=== PATIENT | male | born 1970 | race African-American/Black ===

== ENCOUNTER 2018-09-02 06:43 | Day surgery (SDC) | payer MEDICAID ==
[~2018-09-02] VITALS: Ht 170.2 cm; Wt 88.5 kg
[~2018-09-02 06:43] MED LIST: ALBU18HF2 IH; AMLO10TA80 PO; BECL10.6 IH; CYCL10TA7 PO; LACTATED RINGERS 1,000 ML IV SCH; OMEP20TA2 PO; OXYC-579 PO
[2018-09-02 07:50] LABS: BASOPHILS % 0.9 % (0.0-2.0); EOSINOPHILS % 4.3 % (0.0-5.0); HEMATOCRIT. 41.5 % (42.0-52.0); HEMOGLOBIN. 13.2 g/dL (14.0-18.0); LYMPHOCYTES % 39.2 % (20.0-50.0); MEAN CORPUSCULAR HEMOGLOBIN 24.6 pg (28.0-32.0); MEAN CORPUSCULAR VOLUME 77.2 fL (80.0-94.0); MEAN PLATELET VOLUME 8.8 fl (7.4-10.4); NEUTROPHILS % 45.6 % (40.0-76.0); PLATELET 166 x1000/uL (130-400); RED BLOOD CELL COUNT 5.37 mill/uL (4.7-6.1); RED CELL DISTRIBUTION WIDTH 14.2 % (11.6-14.6)
[2018-09-02 07:58] LABS: CHLORIDE 111 mEq/L (98-107); PARTIAL THROMBOPLASTIN TIME 26.4 sec (23.4-31.0)
[2018-09-02 09:03] LABS: CLARITY URINE CLEAR (CLEAR); COLOR URINE YELLOW (YELLOW); KETONES URINE NEGATIVE (NEGATIVE); LEUKOCYTE ESTERASE URINE NEGATIVE (NEGATIVE); NITRITE URINE NEGATIVE (NEGATIVE); OCCULT BLOOD URINE NEGATIVE (NEGATIVE); PH URINE 5.5 (4.5-8.0); PROTEIN URINE NEGATIVE (NEGATIVE); SPECIFIC GRAVITY URINE 1.022 (1.005-1.030); UROBILINOGEN URINE 0.2 E.U./dL (0.2-1.0)
[2018-09-02] MEDS ORDERED: EPINEPHRINE 1:1000 1 MG/ML AMP ONE (10:01)
[2018-09-02] MEDS ORDERED: BUPIVACAINE HCL/EPINEPHRINE 0.5%/0.0005 30ML ONE ×2 (10:02→14:44)
[2018-09-02] MEDS ORDERED: BUPIVACAINE/EPINEPH/PF 0.25%/0.0005 10ML ONE ×2 (10:28→13:59)
[2018-09-02] MEDS ORDERED: CLINDAMYCIN 900 MG in DEXTROSE 5% WATER 50 ML IV ONE (10:45)
[2018-09-02] MEDS ORDERED: FENTANYL CITRATE/PF 50MCG/ML 2ML VIAL ONE ×2 (11:40→13:13)
[2018-09-02] MEDS ORDERED: MIDAZOLAM HCL 2 MG/2 ML VIAL ONE ×2 (11:40→13:13)
[2018-09-02] MEDS ORDERED: ROPIVACAINE HCL 10MG/ML 20 ML VIAL EPI ONE (11:40)
[2018-09-02] MEDS ORDERED: NEOSTIGMINE METHYLSULFATE 1MG/ML 10 ML VIAL ONE (13:13)
[2018-09-02] MEDS ORDERED: PROPOFOL 200MG/20ML VIAL IV ONE (13:13)
[2018-09-02] MEDS ORDERED: GLYCOPYRROLATE 0.2 MG/ML 2ML VIAL ONE (13:13)
[2018-09-02] MEDS ORDERED: EPHEDRINE SULFATE 50MG/ML VIAL ONE (13:13)
[2018-09-02] MEDS ORDERED: ROCURONIUM BROMIDE 10MG/ML VIAL 5ML IV ONE (13:13)
[2018-09-02] MEDS ORDERED: SODIUM CHLORIDE 0.9% 10ML VIAL ONE (13:13)
[2018-09-02] MEDS ORDERED: SUCCINYLCHOLINE CHLORIDE 200MG/10ML IV ONE (13:13)
[2018-09-02] MEDS ORDERED: LIDOCAINE HCL/PF 1% 10 MG/ML 5ML VIAL ONE (13:13)
[2018-09-02] MEDS ORDERED: CEFAZOLIN SODIUM 1000MG/VIAL ONE (13:13)
[2018-09-02] MEDS ORDERED: METOCLOPRAMIDE HCL 10MG/2ML VIAL ONE (13:14)
[2018-09-02] MEDS ORDERED: ONDANSETRON HCL 4MG/2ML INJ ONE (13:14)
[2018-09-02] MEDS ORDERED: PHENYLEPHRINE HCL 10 MG/ML 1ML (IV VIAL) IV ONE (13:14)
[2018-09-02] MEDS ORDERED: DEXAMETHASONE 4MG/ML 1ML VIAL ONE (13:14)
[2018-09-02] MEDS ORDERED: MORPHINE SULFATE/PF 1MG/ML 10ML AMP ONE (14:44)
[2018-09-02] MEDS ORDERED: HYDROCODONE/ACETAMINOPHEN 10/325MG TABLET PO PRN (15:45)
== END 2018-09-02 16:45 | disposition home or self-care (01) ==
LOC: OR 06:43 → EDSEX 11:30 → OR 16:45
PROVIDERS: ATTEND Orthopaedic Surgery
DX: M75.101 Unspecified rotator cuff tear or rupture of right shoulder, not specified as traumatic (principal); M75.41 Impingement syndrome of right shoulder; G47.00 Insomnia, unspecified; M19.011 Primary osteoarthritis, right shoulder; J45.909 Unspecified asthma, uncomplicated; I11.0 Hypertensive heart disease with heart failure; I50.9 Heart failure, unspecified; F17.210 Nicotine dependence, cigarettes, uncomplicated; Z79.01 Long term (current) use of anticoagulants; Z79.899 Other long term (current) drug therapy; Z88.0 Allergy status to penicillin
CPT/HCPCS: 29823; 29824; 29826; 36415; 64415; 80048; 81003; 85025; 85610; 85730; 88304; 88311; J0171; J0330; J0690; J2250; J2370; J2405; J2765; J2795; J3010; J3490; J7060; A4565; J1100; J2274; J2704; J2710